=== PATIENT | female | born 1995 | race Caucasian/White ===

== ENCOUNTER 2017-04-09 18:37 | Inpatient (IN) | payer MEDICAID, OTHER ==
[~2017-04-09] VITALS: Ht 154.9 cm; Wt 57.8 kg
[~2017-04-09 18:37] MED LIST: AMOX875T PO; ATOR10TA9 PO; INSU100I18 SQ; INSU100V8 SQ; LISI5TAB7 PO; NORE1TAB85 PO; PARO20TA4 PO
[2017-04-09] MEDS ORDERED: SODIUM CHLORIDE 0.9% 1,000 ML IV ONE (19:01)
[2017-04-09] MEDS ORDERED: HYDROmorphone 1 MG/ML, 1ML ONE ×2 (19:28→20:43)
[2017-04-09] MEDS ORDERED: ONDANSETRON 2MG/ML, 2ML ONE (19:29)
[2017-04-09] MEDS ORDERED: SODIUM CHLORIDE FLUSH 10ML SYR IVF ONE (19:30)
[2017-04-09] MEDS ORDERED: ONDANSETRON 2MG/ML, 2ML IVPush ONE (19:30)
[2017-04-09 19:35] LABS: ASPARTATE AMINO TRANSFERASE 3 U/L (15-37); BLOOD UREA NITROGEN 6 mg/dL (7-18)
[2017-04-09] MEDS: HYDROmorphone 1 MG/ML, 1ML IVPush PRN ×2 (19:38→20:45)
[2017-04-09 20:07] LABS: PH, VENOUS 7.356 pH (7.320-7.420)
[2017-04-09] MEDS ORDERED: OMNIPAQUE 350 MG/ML, 100ML BOTTLE ONE (21:25)
[2017-04-09] MEDS ORDERED: SODIUM CHLORIDE 0.9% 1,000ML IVBOLUS ONE (21:30)
[2017-04-09 21:43] LABS: DAU SCREEN DISCLAIMER
[2017-04-09] MEDS ORDERED: CEFTRIAXONE PMX 1GM/50ML 50 ML IV ONE (22:00)
[2017-04-09] MEDS ORDERED: HYDROcodone/APAP 5/325 TABLET PO ONE (22:30)
[2017-04-09] MEDS ORDERED: CEFTRIAXONE PMX 1GM/50ML 50 ML ONE (23:02)
[2017-04-09] MEDS ORDERED: HYDROcodone/APAP 5/325 TABLET ONE (23:02)
[2017-04-10] MEDS ORDERED: DEXTROSE 4 GM TAB.CHEW PO PRN
[2017-04-10] MEDS ORDERED: ACETAMINOPHEN 325 MG TABLET PO PRN
[2017-04-10] MEDS ORDERED: DEXTROSE 50%, 50ML SYRINGE IVPush PRN
[2017-04-10] MEDS ORDERED: VANCOMYCIN PER PHARMACY MC PRN
[2017-04-10] MEDS ORDERED: GLUCAGON 1 MG IM PRN
[2017-04-10] MEDS ORDERED: POLYETHYLENE GLYCOL 17 GM PACKET PO PRN
[2017-04-10] MEDS ORDERED: BISACODYL 10 MG SUPP PR PRN
[2017-04-10 00:03] VITALS: BP 115/73
[2017-04-10] MEDS: morphine SULFATE 10 MG/ML, 1ML IVPush PRN ×2 (00:22→06:00)
[2017-04-10] MEDS ORDERED: PHARMACOKINETIC MONITORING MC PRN (00:30)
[2017-04-10] MEDS ORDERED: PHARMACOKINETIC CONSULTATION MC ONE (00:30)
[2017-04-10] MEDS ORDERED: VANCOMYCIN PMX 1GM/200ML 200 ML IV SCH (00:30)
[2017-04-10] MEDS: NS + 20MEQ KCL 1,000 ML IV SCH ×3 (00:37→21:06)
[2017-04-10] MEDS: PIPERACILLIN/TAZO 3.375 GM in SODIUM CHLORIDE 0.9% 50 ML IV SCH ×3 (00:38→18:13)
[2017-04-10] MEDS: VANCOMYCIN 1,100 MG in SODIUM CHLORIDE 0.9% 250 ML IV SCH ×2 (01:36→12:46)
[2017-04-10] MEDS: SODIUM CHLORIDE FLUSH 10ML SYR IVF SCH ×3 (01:37→21:00)
[2017-04-10] MEDS: ATORVASTATIN 10 MG TABLET PO SCH ×2 (01:37→21:08)
[2017-04-10] MEDS: INSULIN DETEMIR 100 UNITS/ML, PEN SQ-INSULIN SCH ×2 (02:31→21:09)
[2017-04-10] MEDS: ONDANSETRON 2MG/ML, 2ML IVPush PRN ×4 (05:59→21:07)
[2017-04-10 06:23] LABS: ASPARTATE AMINO TRANSFERASE 9 U/L (15-37); BLOOD UREA NITROGEN 3 mg/dL (7-18)
[2017-04-10 07:18] VITALS: BP 106/73
[2017-04-10] MEDS: INSULIN ASPART 100 UNITS/ML, PEN SQ-INSULIN SCH ×5 (08:00→21:00)
[2017-04-10] MEDS: PAROXETINE 20 MG TABLET PO SCH (10:15)
[2017-04-10] MEDS: LISINOPRIL 5 MG TABLET PO SCH (10:15)
[2017-04-10] MEDS: NORETHINDRONE A E ESTRADIOL HOMEMEDPO SCH (10:15)
[2017-04-10] MEDS: HEPARIN 5,000 UNITS/ML, 1ML SQ SCH ×3 (10:15→16:00)
[2017-04-10] MEDS: SENNA/DOCUSATE TABLET PO SCH (10:16)
[2017-04-10] MEDS: HYDROcodone/APAP 10/325 MG TABLET PO PRN ×3 (12:46→21:08)
[2017-04-10 14:17] VITALS: BP 104/66
[2017-04-10] MEDS ORDERED: METOCLOPRAMIDE 5 MG/ML, 2ML IVPush PRN (15:30)
[2017-04-10 19:50] VITALS: BP 103/69
[2017-04-11 01:02] VITALS: BP 121/84
[2017-04-11] MEDS: HYDROcodone/APAP 10/325 MG TABLET PO PRN ×5 (01:04→21:54)
[2017-04-11] MEDS: PIPERACILLIN/TAZO 3.375 GM in SODIUM CHLORIDE 0.9% 50 ML IV SCH ×3 (01:04→17:31)
[2017-04-11] MEDS: VANCOMYCIN 1,100 MG in SODIUM CHLORIDE 0.9% 250 ML IV SCH ×2 (01:04→12:43)
[2017-04-11] MEDS: NS + 20MEQ KCL 1,000 ML IV SCH (05:02)
[2017-04-11 05:51] LABS: BLOOD UREA NITROGEN 3 mg/dL (7-18)
[2017-04-11] MEDS: ONDANSETRON 2MG/ML, 2ML IVPush PRN ×2 (06:32→12:43)
[2017-04-11] MEDS: INSULIN ASPART 100 UNITS/ML, PEN SQ-INSULIN SCH ×4 (07:00→21:56)
[2017-04-11 07:59] VITALS: BP 119/81
[2017-04-11] MEDS: HEPARIN 5,000 UNITS/ML, 1ML SQ SCH ×5 (08:00→23:54)
[2017-04-11] MEDS ORDERED: NS + 20MEQ KCL 1,000 ML IV SCH (08:23)
[2017-04-11] MEDS: SENNA/DOCUSATE TABLET PO SCH (09:00)
[2017-04-11] MEDS: NORETHINDRONE A E ESTRADIOL HOMEMEDPO SCH (09:00)
[2017-04-11] MEDS: LISINOPRIL 5 MG TABLET PO SCH (09:00)
[2017-04-11] MEDS: PAROXETINE 20 MG TABLET PO SCH (09:09)
[2017-04-11] MEDS: SODIUM CHLORIDE FLUSH 10ML SYR IVF SCH ×2 (09:10→21:57)
[2017-04-11 14:00] VITALS: BP 113/73
[2017-04-11 20:00] VITALS: BP 123/82
[2017-04-11] MEDS: ATORVASTATIN 10 MG TABLET PO SCH (21:54)
[2017-04-11] MEDS: INSULIN DETEMIR 100 UNITS/ML, PEN SQ-INSULIN SCH (21:55)
[2017-04-12] MEDS: PIPERACILLIN/TAZO 3.375 GM in SODIUM CHLORIDE 0.9% 100 ML IV SCH ×2 (00:45→09:57)
[2017-04-12] MEDS: VANCOMYCIN 1,100 MG in SODIUM CHLORIDE 0.9% 250 ML IV SCH (01:40)
[2017-04-12 02:43] VITALS: BP 99/63
[2017-04-12] MEDS: HYDROcodone/APAP 10/325 MG TABLET PO PRN ×4 (05:58→18:16)
[2017-04-12] MEDS: ONDANSETRON 2MG/ML, 2ML IVPush PRN ×2 (05:58→19:49)
[2017-04-12 06:09] LABS: BLOOD UREA NITROGEN 3 mg/dL (7-18)
[2017-04-12 07:50] VITALS: BP 109/73
[2017-04-12] MEDS: HEPARIN 5,000 UNITS/ML, 1ML SQ SCH ×3 (08:00→21:02)
[2017-04-12] MEDS: INSULIN ASPART 100 UNITS/ML, PEN SQ-INSULIN SCH ×4 (08:36→20:58)
[2017-04-12] MEDS: PAROXETINE 20 MG TABLET PO SCH (08:37)
[2017-04-12] MEDS: SODIUM CHLORIDE FLUSH 10ML SYR IVF SCH ×2 (08:37→19:49)
[2017-04-12] MEDS: LISINOPRIL 5 MG TABLET PO SCH (08:39)
[2017-04-12] MEDS: NORETHINDRONE A E ESTRADIOL HOMEMEDPO SCH (08:39)
[2017-04-12] MEDS: SENNA/DOCUSATE TABLET PO SCH (08:39)
[2017-04-12] MEDS ORDERED: OMNIPAQUE 350 MG/ML, 100ML BOTTLE ONE (09:39)
[2017-04-12 12:10] VITALS: BP 109/75
[2017-04-12] MEDS: NS + 20MEQ KCL 1,000 ML IV SCH (14:45)
[2017-04-12] MEDS ORDERED: PIPERACILLIN/TAZO 3.375 GM in SODIUM CHLORIDE 0.9% 50 ML IV SCH ×2 (16:00→18:00)
[2017-04-12] MEDS: CEFTRIAXONE 2 GM in SODIUM CHLORIDE 0.9% 50 ML IV SCH (18:11)
[2017-04-12 19:12] VITALS: BP 117/79
[2017-04-12] MEDS ORDERED: INSULIN DETEMIR 100 UNITS/ML, PEN SQ-INSULIN SCH (21:00)
[2017-04-12] MEDS: ATORVASTATIN 10 MG TABLET PO SCH (21:00)
[2017-04-13] MEDS: HYDROcodone/APAP 10/325 MG TABLET PO PRN ×5 (00:25→18:32)
[2017-04-13 01:26] VITALS: BP 115/76
[2017-04-13 05:05] LABS: BLOOD UREA NITROGEN 1 mg/dL (7-18)
[2017-04-13] MEDS: NS + 20MEQ KCL 1,000 ML IV SCH (05:10)
[2017-04-13] MEDS: LEVOTHYROXINE 75 MCG TABLET PO SCH (05:22)
[2017-04-13] MEDS: INSULIN ASPART 100 UNITS/ML, PEN SQ-INSULIN SCH ×4 (07:00→19:40)
[2017-04-13 07:33] VITALS: BP 113/72
[2017-04-13] MEDS: HEPARIN 5,000 UNITS/ML, 1ML SQ SCH ×3 (08:00→19:50)
[2017-04-13] MEDS: NORETHINDRONE A E ESTRADIOL HOMEMEDPO SCH (09:00)
[2017-04-13] MEDS: SENNA/DOCUSATE TABLET PO SCH (09:00)
[2017-04-13] MEDS: LISINOPRIL 5 MG TABLET PO SCH (09:00)
[2017-04-13] MEDS: POTASSIUM CHLORIDE 20 MEQ TAB.ER.PRT PO SCH ×2 (09:31→16:13)
[2017-04-13] MEDS: PAROXETINE 20 MG TABLET PO SCH (09:31)
[2017-04-13] MEDS: SODIUM CHLORIDE FLUSH 10ML SYR IVF SCH ×2 (09:32→19:33)
[2017-04-13 13:19] VITALS: BP 133/90
[2017-04-13] MEDS: CEFTRIAXONE 2 GM in SODIUM CHLORIDE 0.9% 50 ML IV SCH (18:29)
[2017-04-13 19:19] VITALS: BP 153/92
[2017-04-13] MEDS: ATORVASTATIN 10 MG TABLET PO SCH (19:33)
[2017-04-13] MEDS ORDERED: INSULIN DETEMIR 100 UNITS/ML, PEN SQ-INSULIN SCH (21:00)
[2017-04-14] MEDS: HYDROcodone/APAP 10/325 MG TABLET PO PRN ×3 (00:53→13:27)
[2017-04-14 02:32] VITALS: BP 121/77
[2017-04-14] MEDS: LEVOTHYROXINE 75 MCG TABLET PO SCH (05:25)
[2017-04-14 05:56] LABS: BLOOD UREA NITROGEN 3 mg/dL (7-18)
[2017-04-14] MEDS: INSULIN ASPART 100 UNITS/ML, PEN SQ-INSULIN SCH ×2 (07:00→11:32)
[2017-04-14 07:45] VITALS: BP 123/78
[2017-04-14] MEDS: HEPARIN 5,000 UNITS/ML, 1ML SQ SCH (08:00)
[2017-04-14] MEDS: SODIUM CHLORIDE FLUSH 10ML SYR IVF SCH (08:35)
[2017-04-14] MEDS: POTASSIUM CHLORIDE 20 MEQ TAB.ER.PRT PO SCH (08:35)
[2017-04-14] MEDS: LISINOPRIL 5 MG TABLET PO SCH (08:36)
[2017-04-14] MEDS: PAROXETINE 20 MG TABLET PO SCH (08:36)
[2017-04-14] MEDS: SENNA/DOCUSATE TABLET PO SCH (08:37)
[2017-04-14] MEDS: NORETHINDRONE A E ESTRADIOL HOMEMEDPO SCH (09:00)
[2017-04-14] MEDS ORDERED: CEFT2VIA4 IV (12:31)
[2017-04-14] MEDS ORDERED: HYDR-3307 PO (12:31)
[2017-04-14] MEDS ORDERED: [UNRECOGNIZED DRUG - CODE] EXT (13:14)
[2017-04-14 13:20] VITALS: BP 153/86
[2017-04-14 16:00] VITALS: BP 152/91
[2017-04-15] MEDS ORDERED: INSU100V13 SQ (14:51)
== END 2017-04-14 16:00 | disposition home or self-care (01) | DRG 871 ==
LOC: ED 22:21 → EDIP 22:22 → ED 22:38 → 3NW 23:57 → 4EST 04-10 00:48
PROVIDERS: ADMIT Family Medicine; ATTEND Family Medicine
PROC: 02HV33Z Insertion of Infusion Device into Superior Vena Cava, Percutaneous Approach (ICD-10-PCS; principal; 2017-04-13)
PROC: B5181ZA Fluoroscopy of Superior Vena Cava using Low Osmolar Contrast, Guidance (ICD-10-PCS; 2017-04-13)
PROC: B548ZZA Ultrasonography of Superior Vena Cava, Guidance (ICD-10-PCS; 2017-04-13)
DX: A41.9 Sepsis, unspecified organism (principal); N15.1 Renal and perinephric abscess; K75.0 Abscess of liver; E87.0 Hyperosmolality and hypernatremia; N12 Tubulo-interstitial nephritis, not specified as acute or chronic; D75.89 Other specified diseases of blood and blood-forming organs; E03.9 Hypothyroidism, unspecified; E10.65 Type 1 diabetes mellitus with hyperglycemia; E78.5 Hyperlipidemia, unspecified; F12.10 Cannabis abuse, uncomplicated; B96.20 Unspecified Escherichia coli [E. coli] as the cause of diseases classified elsewhere; I10 Essential (primary) hypertension; E87.6 Hypokalemia; Z83.3 Family history of diabetes mellitus; Z79.4 Long term (current) use of insulin; Z91.14 Patient's other noncompliance with medication regimen; Z90.721 Acquired absence of ovaries, unilateral; Z79.899 Other long term (current) drug therapy; Z87.01 Personal history of pneumonia (recurrent); Z88.5 Allergy status to narcotic agent
CPT/HCPCS: 36415; 36569; 71275; 74160; 74177; 76937; 77001; 80048; 80053; 80202; 80307; 81003; 82010; 82803; 82962; 83036; 83605; 84145; 84443; 84703; 85025; 87040; 87077; 87086; 87186; 87324; 96361; 96374; 96375; 96376; J0696; J1170; J1644; J1815; J2405; J2543; J3370; J3480; Q9967; C1751; J2270; J2765; J7030; J7050

== ENCOUNTER 2019-12-10 12:22 | Emergency (ER) | payer OTHER ==
[~2019-12-10] VITALS: Ht 154.9 cm; Wt 68.2 kg
[~2019-12-10 12:22] MED LIST changes: +BLOO-579 EXT; +CEFT2VIA53 IV; +HYDR-36 PO; +INSU100V13 SQ
[2019-12-10] MEDS ORDERED: LORazepam 2 MG/ML, 1ML ONE (13:10)
[2019-12-10 13:15] VITALS: BP 110/63
[2019-12-10] MEDS ORDERED: LIDOCAINE-MPF 1%, 5ML ONE (13:24)
--- NOTE | 2019-12-10 13:29 | NUR ---
PT HAS CO DENTAL PAIN W LEFT FACIAL SWELLING FOR 4 DAYS. NO INJURY OR TRAUMA IV ESTABLISHED. MEDICATED PER ORDERS. I&D READY
[2019-12-10] MEDS ORDERED: LORazepam 2 MG/ML, 1ML IVPush ONE (13:30)
[2019-12-10] MEDS ORDERED: AMPICILLIN/SULBACTAM 3 GM in SODIUM CHLORIDE 0.9% 100 ML IV ONE (14:00)
[2019-12-10] MEDS ORDERED: SODIUM CHLORIDE FLUSH 10ML SYR IVF ONE (14:00)
--- NOTE | 2019-12-10 14:59 | NUR ---
Patient/Caregiver given discharge instructions and they have confirmed that they understand the instructions. Patient ambulatory with steady gait.
[2019-12-10] MEDS ORDERED: HYDROcodone/APAP 5/325 TABLET PO ONE (15:00)
[2019-12-10] MEDS ORDERED: HYDROcodone/APAP 5/325 TABLET ONE (15:01)
== END 2019-12-10 15:09 | disposition home or self-care (01) ==
LOC: ED 12:53
DX: K04.7 Periapical abscess without sinus (principal); R11.2 Nausea with vomiting, unspecified; E10.8 Type 1 diabetes mellitus with unspecified complications; E78.5 Hyperlipidemia, unspecified; I10 Essential (primary) hypertension; Z79.899 Other long term (current) drug therapy; Z90.721 Acquired absence of ovaries, unilateral
CPT/HCPCS: 41800; 96365; 96375; 99283; J0295; J2060